=== PATIENT | female | born 1995 | race Caucasian/White ===

== ENCOUNTER 2020-11-28 23:28 | Emergency (ER) | payer OTHER ==
[2020-11-28 23:38] VITALS: BP 110/65; PULSE 83; TEMP 98.9; BMI 22.8
[2020-11-28] MEDS ORDERED: ACETAMINOPHEN 1000 MG/100 ML VIAL IVPB ONE (23:52)
[2020-11-28] MEDS ORDERED: FAMOTIDINE 20 MG/50 ML IVPB 20 MG/50 ML MG IVPB ONE (23:52)
[2020-11-28] MEDS ORDERED: MAG HYDROX/AL HYDROX/SIMETH 30 ML UNIT-DOSE CUP PO ONE (23:53)
[2020-11-28] MEDS ORDERED: ACETAMINOPHEN INJECTION 100 ML IVPB ONE (23:56)
[2020-11-28] MEDS ORDERED: MAG HYDROX/AL HYDROX/SIMETH 30 ML UNIT-DOSE CUP ONE (23:56)
[2020-11-29 01:34] LABS: BASO % 0.3 % (0-2.0); HEMATOCRIT 37.7 % (32.4-45.2); HEMOGLOBIN 12.8 GM/dL (10.7-15.3); MCH 29.3 pg (25.7-33.7); MCHC 34.1 g/dl (32.0-36.0); MEAN PLT VOLUME 10.8 fl (7.5-11.1); MONO % 7.8 % (3.8-10.2); NEUT % 52.9 % (42.8-82.8); PLATELET COUNT 185 10^3/uL (134-434); RBC 4.39 M/mm3 (3.60-5.2); RDW 13.2 % (11.6-15.6); WHITE BLOOD COUNT 11.7 K/mm3 (4.0-10.0)
[2020-11-29 01:37] LABS: EPI CELLS 22 /uL (0-25.1); HYALINE CASTS 0 /uL (0-3.1); URINE APPEARANCE CLEAR; URINE BACTERIA 427 /uL (0-1359); URINE BILIRUBIN NEGATIVE (NEGATIVE); URINE COLOR YELLOW; URINE GLUCOSE (UA) NEGATIVE (NEGATIVE); URINE KETONE NEGATIVE (NEGATIVE); URINE LEUK ESTERASE 1+ (NEGATIVE); URINE NITRITE NEGATIVE (NEGATIVE); URINE PROTEIN NEGATIVE (NEGATIVE); URINE RBC 2 /uL (0-23.9); URINE UROBILINOGEN 0.2 mg/dL (0.2-1.0); URINE WBC 35 /uL (0-25.8)
[2020-11-29 01:48] LABS: CHLORIDE 106 mmol/L (98-107); SODIUM 138 mmol/L (136-145)
[2020-11-29 01:51] LABS: BLOOD UREA NITROGEN 9.4 mg/dL (7-18); LIPASE 235 U/L (73-393); MAGNESIUM 2.1 mg/dL (1.8-2.4)
[2020-11-29 01:52] LABS: ANION GAP 7 MMOL/L (8-16); CO2 24 mmol/L (21-32)
[2020-11-29 01:54] LABS: CREATININE 0.6 mg/dL (0.55-1.3); GLUCOSE,RANDOM 81 mg/dL (74-106); SGOT/AST 13 U/L (15-37)
[2020-11-29 01:55] LABS: BILIRUBIN,TOTAL 0.2 mg/dL (0.2-1); TOT PROT 8.2 g/dl (6.4-8.2)
[2020-11-29 01:56] LABS: ALK PHOS 85 U/L (45-117)
[2020-11-29 01:59] LABS: SGPT/ALT 27 U/L (13-61)
== END 2020-11-29 02:18 | disposition home or self-care (01) ==
LOC: FER 23:28
PROC: 3E033NZ Introduction of Analgesics, Hypnotics, Sedatives into Peripheral Vein, Percutaneous Approach (ICD-10-PCS; principal; 2020-11-28)
PROC: 3E033GC Introduction of Other Therapeutic Substance into Peripheral Vein, Percutaneous Approach (ICD-10-PCS; 2020-11-28)
DX: R07.9 Chest pain, unspecified (principal); R10.13 Epigastric pain; Z32.01 Encounter for pregnancy test, result positive
CPT/HCPCS: 36415; 80053; 81003; 81025; 83690; 83735; 84484; 85025; 87086; 93005; 99284-25; J0131

== ENCOUNTER 2022-04-03 22:18 | Emergency (ER) | payer OTHER ==
[2022-04-03 22:27] VITALS: BP 113/75; PULSE 64; RESP 16; TEMP 98; BMI 23.2
[2022-04-03] MEDS ORDERED: MAG HYDROX/AL HYDROX/SIMETH 30 ML UNIT-DOSE CUP PO ONE (22:37)
[2022-04-03] MEDS ORDERED: ONDANSETRON 4 MG TABLET PO ONE (22:37)
[2022-04-03] MEDS ORDERED: ONDANSETRON *ODT* 4 MG TABLET ONE (22:40)
[2022-04-03] MEDS ORDERED: MAG HYDROX/AL HYDROX/SIMETH 30 ML UNIT-DOSE CUP ONE (22:40)
== END 2022-04-03 22:55 | disposition home or self-care (01) ==
LOC: FER 22:18
DX: J02.9 Acute pharyngitis, unspecified (principal)
CPT/HCPCS: 87651; 99283-25

== ENCOUNTER 2023-11-11 21:56 | Emergency (ER) | payer OTHER ==
[2023-11-11 22:09] VITALS: RESP 18; BMI 21.4
[2023-11-11] MEDS ORDERED: KETAMINE HCL 200 MG/20 ML VIAL ONE (23:01)
[2023-11-11] MEDS: KETAMINE HCL 200 MG/20 ML VIAL IVPUSH ONE (23:16)
[2023-11-12] MEDS ORDERED: KETOROLAC TROMETHAMINE 15 MG/ML VIAL ONE (00:34)
[2023-11-12] MEDS: KETOROLAC TROMETHAMINE 15 MG/ML VIAL IVPUSH ONE (00:37)
[2023-11-12] MEDS ORDERED: ACETAMINOPHEN INJECTION 100 ML ONE (02:05)
[2023-11-12 02:13] VITALS: BP 128/74; PULSE 80; TEMP 98.6
[2023-11-12] MEDS: ACETAMINOPHEN 1000 MG/100 ML BAG IVPB ONE (02:13)
== END 2023-11-12 04:24 | disposition home or self-care (01) ==
LOC: JER 21:56
PROC: 3E033GC Introduction of Other Therapeutic Substance into Peripheral Vein, Percutaneous Approach (ICD-10-PCS; 2023-11-11)
PROC: 3E033NZ Introduction of Analgesics, Hypnotics, Sedatives into Peripheral Vein, Percutaneous Approach (ICD-10-PCS; principal; 2023-11-12)
PROC: 3E0333Z Introduction of Anti-inflammatory into Peripheral Vein, Percutaneous Approach (ICD-10-PCS; 2023-11-12)
PROC: 3E033GC Introduction of Other Therapeutic Substance into Peripheral Vein, Percutaneous Approach (ICD-10-PCS; 2023-11-12)
DX: G90.511 Complex regional pain syndrome I of right upper limb (principal)
CPT/HCPCS: 99284-25; J0131

== ENCOUNTER 2023-12-12 00:22 | Inpatient (IN) | payer OTHER ==
[2023-12-12 01:49] LABS: BASO % 0.3 % (0-2.0); EOS % 0.1 % (0-4.5); HEMATOCRIT 42.2 % (32.4-45.2); LYMPH % 15.7 % (8-40); MCH 29.6 pg (25.7-33.7); MCHC 33.1 g/dl (32.0-36.0); MEAN CELL VOLUME 89.6 fl (80-96); MONO % 5.3 % (3.8-10.2); NEUT % 78.6 % (42.8-82.8); PLATELET COUNT 213 10^3/uL (134-434); RBC 4.71 M/mm3 (3.60-5.2); WHITE BLOOD COUNT 16.4 K/mm3 (4.0-10.0)
[2023-12-12 02:00] LABS: INR 1.05 (0.83-1.09); PROTHROMBIN TIME (PATIENT) 11.8 SEC (9.7-13.0)
[2023-12-12 02:06] LABS: ACTIVATED PTT 34.9 SECONDS (25.2-36.5)
[2023-12-12 02:27] LABS: POTASSIUM 3.9 mmol/L (3.5-5.1)
[2023-12-12 02:29] LABS: CALCIUM 8.8 mg/dL (8.5-10.1)
[2023-12-12 02:31] LABS: ALBUMIN 3.8 g/dl (3.4-5.0); BLOOD UREA NITROGEN 11.8 mg/dL (7-18)
[2023-12-12 02:33] LABS: CREATININE 0.5 mg/dL (0.55-1.3)
[2023-12-12 02:34] LABS: BILIRUBIN,TOTAL 0.2 mg/dL (0.2-1); TOT PROT 7.6 g/dl (6.4-8.2)
[2023-12-12 04:16] LABS: EPI CELLS 22 /uL (0-25.1); HYALINE CASTS 0 /uL (0-3.1); PH,URINE 6.5 (5.0-8.0); URINE APPEARANCE CLEAR; URINE BACTERIA 320 /uL (0-1359); URINE BILIRUBIN NEGATIVE (NEGATIVE); URINE COLOR YELLOW; URINE GLUCOSE (UA) NEGATIVE (NEGATIVE); URINE KETONE NEGATIVE (NEGATIVE); URINE LEUK ESTERASE TRACE (NEGATIVE); URINE NITRITE NEGATIVE (NEGATIVE); URINE PROTEIN NEGATIVE (NEGATIVE); URINE RBC 29 /uL (0-23.9); URINE UROBILINOGEN 0.2 mg/dL (0.2-1.0); URINE WBC 39 /uL (0-25.8)
[2023-12-12] MEDS: predniSONE 10 MG TABLET (UD) PO SCH (09:06)
[2023-12-12 10:01] LABS: BASO % 0.2 % (0-2.0); EOS % 0.3 % (0-4.5); HEMATOCRIT 37.9 % (32.4-45.2); HEMOGLOBIN 12.7 GM/dL (10.7-15.3); LYMPH % 29.6 % (8-40); MCH 29.6 pg (25.7-33.7); MCHC 33.5 g/dl (32.0-36.0); MEAN CELL VOLUME 88.2 fl (80-96); MEAN PLT VOLUME 10.5 fl (7.5-11.1); MONO % 6.3 % (3.8-10.2); NEUT % 63.6 % (42.8-82.8); PLATELET COUNT 193 10^3/uL (134-434); RBC 4.29 M/mm3 (3.60-5.2); RDW 13.6 % (11.6-15.6); WHITE BLOOD COUNT 16.3 K/mm3 (4.0-10.0)
[2023-12-12 10:02] LABS: CHLORIDE 108 mmol/L (98-107); POTASSIUM 3.6 mmol/L (3.5-5.1); SODIUM 139 mmol/L (136-145)
[2023-12-12 10:04] LABS: ANION GAP 5 mmol/L (4-13); BLOOD UREA NITROGEN 9.5 mg/dL (7-18); CALCIUM 8.7 mg/dL (8.5-10.1); CO2 25 mmol/L (21-32); GLUCOSE,RANDOM 72 mg/dL (74-106)
[2023-12-12 10:07] LABS: CREATININE 0.5 mg/dL (0.55-1.3)
[2023-12-12] MEDS: CEFTRIAXONE 1 G/50 ML PREMIX 50 ML IVPB SCH (11:53)
[2023-12-12 16:45] LABS: PH,URINE 7.5 (5.0-8.0); URINE APPEARANCE CLEAR; URINE BILIRUBIN NEGATIVE (NEGATIVE); URINE COLOR YELLOW; URINE GLUCOSE (UA) NEGATIVE (NEGATIVE); URINE KETONE NEGATIVE (NEGATIVE); URINE LEUK ESTERASE NEGATIVE (NEGATIVE); URINE NITRITE NEGATIVE (NEGATIVE); URINE PROTEIN NEGATIVE (NEGATIVE); URINE UROBILINOGEN 0.2 mg/dL (0.2-1.0)
[2023-12-12] MEDS ORDERED: ACETAMINOPHEN 1000 MG/100 ML BAG IVPB PRN (21:08)
[2023-12-13 10:56] LABS: BASO % 0.3 % (0-2.0); EOS % 0.6 % (0-4.5); HEMOGLOBIN 13.4 GM/dL (10.7-15.3); LYMPH % 32.4 % (8-40); MCH 30.1 pg (25.7-33.7); MCHC 34.4 g/dl (32.0-36.0); MEAN CELL VOLUME 87.4 fl (80-96); MEAN PLT VOLUME 10.3 fl (7.5-11.1); MONO % 6.1 % (3.8-10.2); NEUT % 60.6 % (42.8-82.8); PLATELET COUNT 194 10^3/uL (134-434); RBC 4.47 M/mm3 (3.60-5.2); RDW 13.7 % (11.6-15.6); WHITE BLOOD COUNT 12.1 K/mm3 (4.0-10.0)
[2023-12-13 14:04] LABS: ALBUMIN 3.3 g/dl (3.4-5.0); BILIRUBIN,TOTAL 0.4 mg/dL (0.2-1); CALCIUM 9.2 mg/dL (8.5-10.1); CREATININE 0.6 mg/dL (0.55-1.3); POTASSIUM 3.1 mmol/L (3.5-5.1)
[2023-12-13] MEDS: POTASSIUM CHLORIDE ORAL LIQUID 20 MEQ/15 ML PO ONE (15:39)
[2023-12-14] MEDS ORDERED: ONDANSETRON 4 MG/2 ML VIAL ONE (07:33)
[2023-12-14] MEDS ORDERED: LIDOCAINE HCL/PF 2% SDV 5ML VIAL ONE (07:33)
[2023-12-14] MEDS ORDERED: PROPOFOL 100 ML ONE (07:33)
[2023-12-14] MEDS ORDERED: PHENYLEPHRINE HCL 10 MG/1 ML SINGLE DOSE VIAL ONE (07:33)
[2023-12-14] MEDS ORDERED: DEXAMETHASONE SOD PHOSPHATE 4 MG/1 ML VIAL ONE (07:33)
[2023-12-14] MEDS ORDERED: SUCCINYLCHOLINE CHLORIDE 200 MG/10 ML SYRINGE ONE (07:34)
[2023-12-14] MEDS ORDERED: MIDAZOLAM HCL 2 MG/2 ML SINGLE DOSE VIAL ONE (07:34)
[2023-12-14] MEDS ORDERED: ROCURONIUM BROMIDE 50 MG/5 ML SYRINGE ONE ×3 (07:34→13:14)
[2023-12-14] MEDS ORDERED: ONDANSETRON 4 MG/2 ML VIAL IVPUSH PRN ×2 (07:57→18:21)
[2023-12-14] MEDS ORDERED: oxyCODONE HCL 5 MG TABLET PO PRN ×2 (07:57→18:30)
[2023-12-14] MEDS: ceFAZolin SODIUM 1 GM VIAL IVPB ONE (08:30)
[2023-12-14] MEDS ORDERED: HEPARIN NA (PORCINE) 5,000 UNITS/ML 1ML VIAL ONE (13:57)
[2023-12-14] MEDS ORDERED: HYDROmorphone HCl 2 MG/ML VIAL ONE (16:26)
[2023-12-14] MEDS ORDERED: PROMETHAZINE HCL 25 MG/1 ML VIAL IVPB PRN (18:21)
[2023-12-14] MEDS: LORazepam 2 MG/ML SDV VIAL IVPUSH SCH (18:30)
[2023-12-14] MEDS: HEPARIN INFUSION - 25,000 UNITS/500 ML INFUS.BAG IVPB SCH (18:50)
[2023-12-14] MEDS: HYDROmorphone *PCA* 10MG/50ML DISP.SYRIN PCA SCH (18:50)
[2023-12-14] MEDS: LACTATED RINGERS SOLUTION 1,000 ML IV SCH (18:50)
[2023-12-14] MEDS ORDERED: HEPARIN NA (PORCINE) 5,000 UNITS/ML 1ML VIAL IVPUSH PRN ×2 (19:22)
[2023-12-14] MEDS: ACETAMINOPHEN 1000 MG/100 ML BAG IVPB ONE (19:32)
[2023-12-14] MEDS: HYDROmorphone HCl 2 MG/ML VIAL IVPUSH PRN (19:40)
[2023-12-15 01:33] LABS: HEMATOCRIT 32.4 % (32.4-45.2); HEMOGLOBIN 10.7 GM/dL (10.7-15.3); MCH 29.4 pg (25.7-33.7); MCHC 33.1 g/dl (32.0-36.0); MEAN CELL VOLUME 88.8 fl (80-96); PLATELET COUNT 174 10^3/uL (134-434); RBC 3.65 M/mm3 (3.60-5.2); RDW 13.4 % (11.6-15.6); WHITE BLOOD COUNT 28.9 K/mm3 (4.0-10.0)
[2023-12-15 01:38] LABS: INR 1.08 (0.83-1.09); PROTHROMBIN TIME (PATIENT) 12.4 SEC (9.7-13.0)
[2023-12-15 01:56] LABS: ACTIVATED PTT 125.4 SECONDS (25.2-36.5)
[2023-12-15 02:02] LABS: POTASSIUM 4.2 mmol/L (3.5-5.1)
[2023-12-15 02:04] LABS: CALCIUM 8.3 mg/dL (8.5-10.1)
[2023-12-15 02:05] LABS: ALBUMIN 2.9 g/dl (3.4-5.0); BLOOD UREA NITROGEN 6.5 mg/dL (7-18); MAGNESIUM 1.8 mg/dL (1.8-2.4)
[2023-12-15 02:08] LABS: CREATININE 0.7 mg/dL (0.55-1.3); PHOSPHOROUS 4.3 mg/dL (2.5-4.9)
[2023-12-15 02:09] LABS: BILIRUBIN,TOTAL 0.4 mg/dL (0.2-1)
[2023-12-15 02:10] LABS: TOT PROT 5.9 g/dl (6.4-8.2)
[2023-12-15 05:43] LABS: ANISOCYTOSIS 3+; MACROCYTOSIS 1+; ROULEAU 2+
[2023-12-15 06:37] LABS: HEMATOCRIT 32.1 % (32.4-45.2); HEMOGLOBIN 10.8 GM/dL (10.7-15.3); MCHC 33.6 g/dl (32.0-36.0); MEAN CELL VOLUME 89.5 fl (80-96); MEAN PLT VOLUME 10.3 fl (7.5-11.1); PLATELET COUNT 171 10^3/uL (134-434); RBC 3.58 M/mm3 (3.60-5.2); RDW 13.3 % (11.6-15.6); WHITE BLOOD COUNT 22.7 K/mm3 (4.0-10.0)
[2023-12-15 10:06] LABS: ANISOCYTOSIS 0; HELMET CELLS 0; HOWELL-JOLLY BODIES 0; MACROCYTOSIS 0; OVALOCYTE 0; ROULEAU 0; SICKELED CELLS 0; TARGET CELLS 0; TEAR DROP CELLS 0; TOXIC GRANULATION 0
[2023-12-15] MEDS: MUPIROCIN 2% TOPICAL OINTMENT FOR DECOLONIZATION NS SCH ×2 (10:58→21:38)
[2023-12-15] MEDS: predniSONE 10 MG TABLET (UD) PO SCH (10:58)
[2023-12-15] MEDS ORDERED: HEPARIN NA (PORCINE) 5,000 UNITS/ML 1ML VIAL ONE ×2 (13:20→16:27)
[2023-12-15] MEDS ORDERED: PAPAVERINE HCL 30 MG/1 ML 10 ML VIAL NR ONE (13:20)
[2023-12-15] MEDS ORDERED: MIDAZOLAM HCL 2 MG/2 ML SINGLE DOSE VIAL ONE (13:37)
[2023-12-15] MEDS ORDERED: ROCURONIUM BROMIDE 50 MG/5 ML SYRINGE ONE (13:37)
[2023-12-15] MEDS ORDERED: ceFAZolin SODIUM 1 GM VIAL ONE (14:56)
[2023-12-15] MEDS: ceFAZolin SODIUM 1 GM VIAL IVPB ONE (14:57)
[2023-12-15] MEDS: HEPARIN NA (PORCINE) 5,000 UNITS/ML 1ML VIAL SQ ONE (15:01)
[2023-12-15] MEDS ORDERED: POVIDONE-IODINE OINTMENT 10% - 28.4 GM TUBE ONE ×2 (17:55→17:56)
[2023-12-15] MEDS: POVIDONE-IODINE OINTMENT 10% - 28.4 GM TUBE TP ONE (18:55)
[2023-12-15] MEDS ORDERED: HEPARIN NA (PORCINE) 5,000 UNITS/ML 1ML VIAL IVPUSH PRN ×2 (19:02)
[2023-12-15] MEDS: HYDROmorphone *PCA* 10MG/50ML DISP.SYRIN PCA SCH (19:55)
[2023-12-15] MEDS: CHLORHEXIDINE GLUCONATE 4% CLEANSER FOR DECOLONIZATION TP SCH (21:37)
[2023-12-15] MEDS ORDERED: CHLORHEXIDINE GLUCONATE 4% CLEANSER FOR DECOLONIZATION TP SCH ×2 (22:00)
[2023-12-15] MEDS ORDERED: MUPIROCIN 2% TOPICAL OINTMENT FOR DECOLONIZATION NS SCH (22:00)
[2023-12-15] MEDS: HEPARIN INFUSION - 25,000 UNITS/500 ML INFUS.BAG IVPB SCH (22:09)
[2023-12-16 05:17] LABS: INR 1.09 (0.83-1.09); PROTHROMBIN TIME (PATIENT) 12.3 SEC (9.7-13.0)
[2023-12-16 05:20] LABS: ACTIVATED PTT 54.4 SECONDS (25.2-36.5)
[2023-12-16 06:48] LABS: HEMATOCRIT 22.9 % (32.4-45.2); HEMOGLOBIN 7.6 GM/dL (10.7-15.3); MCH 29.5 pg (25.7-33.7); MCHC 33.1 g/dl (32.0-36.0); MEAN PLT VOLUME 9.9 fl (7.5-11.1); PLATELET COUNT 155 10^3/uL (134-434); RBC 2.58 M/mm3 (3.60-5.2); RDW 13.4 % (11.6-15.6); WHITE BLOOD COUNT 16.2 K/mm3 (4.0-10.0)
[2023-12-16 07:04] LABS: POTASSIUM 3.8 mmol/L (3.5-5.1)
[2023-12-16 07:06] LABS: CALCIUM 7.5 mg/dL (8.5-10.1)
[2023-12-16 07:10] LABS: CREATININE 0.4 mg/dL (0.55-1.3)
[2023-12-16 07:12] LABS: BILIRUBIN,TOTAL 0.5 mg/dL (0.2-1); TOT PROT 4.8 g/dl (6.4-8.2)
[2023-12-16 07:52] LABS: ALBUMIN 2.3 g/dl (3.4-5.0)
[2023-12-16] MEDS: predniSONE 10 MG TABLET (UD) PO SCH (09:21)
[2023-12-16 10:35] LABS: HEMATOCRIT 21.5 % (32.4-45.2); HEMOGLOBIN 7.2 GM/dL (10.7-15.3); LYMPH % 8.3 % (8-40); MCH 29.8 pg (25.7-33.7); MCHC 33.7 g/dl (32.0-36.0); MEAN CELL VOLUME 88.5 fl (80-96); MEAN PLT VOLUME 9.3 fl (7.5-11.1); NEUT % 81.7 % (42.8-82.8); PLATELET COUNT 150 10^3/uL (134-434); RBC 2.42 M/mm3 (3.60-5.2); RDW 13.3 % (11.6-15.6); WHITE BLOOD COUNT 14.6 K/mm3 (4.0-10.0)
[2023-12-16] MEDS: ACETAMINOPHEN 1000 MG/100 ML BAG IVPB PRN ×2 (12:20→17:55)
[2023-12-16] MEDS: LACTATED RINGERS SOLUTION 1,000 ML/1,000 ML INFUS.BAG IV SCH (14:25)
[2023-12-16] MEDS ORDERED: SENNOSIDES 8.8 MG/5 ML SYRUP PO PRN (16:48)
[2023-12-16] MEDS ORDERED: HYDROmorphone HCl 2 MG/ML VIAL IVPUSH PRN (16:51)
[2023-12-16] MEDS ORDERED: ACETAMINOPHEN 325 MG TABLET (FP) PO SCH (17:00)
[2023-12-16 19:32] LABS: HEMATOCRIT 25.1 % (32.4-45.2); HEMOGLOBIN 8.4 GM/dL (10.7-15.3); MCH 29.9 pg (25.7-33.7); MCHC 33.6 g/dl (32.0-36.0); MEAN PLT VOLUME 9.4 fl (7.5-11.1); PLATELET COUNT 128 10^3/uL (134-434); RBC 2.82 M/mm3 (3.60-5.2); RDW 13.9 % (11.6-15.6); WHITE BLOOD COUNT 13.9 K/mm3 (4.0-10.0)
[2023-12-16] MEDS: LACTATED RINGERS SOLUTION 1,000 ML IV SCH (19:40)
[2023-12-17] MEDS: LACTATED RINGERS SOLUTION 1,000 ML/1,000 ML INFUS.BAG IV ONE (03:08)
[2023-12-17 07:24] LABS: HEMATOCRIT 20.2 % (32.4-45.2); MCH 30.4 pg (25.7-33.7); MCHC 33.9 g/dl (32.0-36.0); MEAN CELL VOLUME 89.6 fl (80-96); MEAN PLT VOLUME 9.3 fl (7.5-11.1); PLATELET COUNT 122 10^3/uL (134-434); RBC 2.25 M/mm3 (3.60-5.2); RDW 13.5 % (11.6-15.6); WHITE BLOOD COUNT 13.8 K/mm3 (4.0-10.0)
[2023-12-17 07:39] LABS: POTASSIUM 3.3 mmol/L (3.5-5.1)
[2023-12-17 07:41] LABS: CALCIUM 7.3 mg/dL (8.5-10.1)
[2023-12-17 07:42] LABS: MAGNESIUM 1.9 mg/dL (1.8-2.4)
[2023-12-17 07:45] LABS: ALBUMIN 1.8 g/dl (3.4-5.0); CREATININE 0.2 mg/dL (0.55-1.3)
[2023-12-17 07:47] LABS: BILIRUBIN,TOTAL 0.5 mg/dL (0.2-1)
[2023-12-17 07:55] LABS: HEMOGLOBIN 6.8 GM/dL (10.7-15.3)
[2023-12-17 08:47] LABS: HEMATOCRIT 21.6 % (32.4-45.2); HEMOGLOBIN 7.2 GM/dL (10.7-15.3); MCH 30.3 pg (25.7-33.7); MCHC 33.5 g/dl (32.0-36.0); MEAN CELL VOLUME 90.6 fl (80-96); MEAN PLT VOLUME 9.4 fl (7.5-11.1); PLATELET COUNT 123 10^3/uL (134-434); RBC 2.38 M/mm3 (3.60-5.2); RDW 13.7 % (11.6-15.6)
[2023-12-17] MEDS: ACETAMINOPHEN 1000 MG/100 ML BAG IVPB SCH (09:10)
[2023-12-17] MEDS: POLYETHYLENE GLYCOL (HEALTHYLAX) 3350 17 GM PACKET PO SCH (09:19)
[2023-12-17] MEDS ORDERED: PAPAVERINE HCL 30 MG/1 ML 10 ML VIAL NR ONE (10:26)
[2023-12-17] MEDS ORDERED: LIDOCAINE HCL 1%, 10 MG/ML (20ML VIAL) ONE (10:26)
[2023-12-17] MEDS ORDERED: NITROGLYCERIN 50 MG/10 ML VIAL IVPB ONE (10:26)
[2023-12-17] MEDS ORDERED: HEPARIN NA (PORCINE) 5,000 UNITS/ML 1ML VIAL ONE (10:26)
[2023-12-17] MEDS: ceFAZolin SODIUM 1 GM VIAL IVPB ONE (11:53)
[2023-12-17] MEDS: HEPARIN NA (PORCINE) 5,000 UNITS/ML 1ML VIAL SQ ONE (12:17)
[2023-12-17] MEDS ORDERED: ONDANSETRON 4 MG/2 ML VIAL IVPUSH PRN (14:57)
[2023-12-17] MEDS: HEPARIN INFUSION - 25,000 UNITS/500 ML INFUS.BAG IVPB SCH (15:34)
[2023-12-17] MEDS: KCL 10 MEQ IVPB 10 MEQ/100 ML INFUS.BAG IVPB SCH (17:18)
[2023-12-17] MEDS: POTASSIUM CHLORIDE ORAL LIQUID 20 MEQ/15 ML PO SCH (17:33)
[2023-12-17] MEDS ORDERED: ACETAMINOPHEN 325 MG TABLET (FP) PO SCH (21:00)
[2023-12-17 21:15] LABS: HEMOGLOBIN 11.4 GM/dL (10.7-15.3); MCH 30.5 pg (25.7-33.7); MCHC 34.5 g/dl (32.0-36.0); MEAN CELL VOLUME 88.3 fl (80-96); PLATELET COUNT 120 10^3/uL (134-434); RBC 3.74 M/mm3 (3.60-5.2); RDW 13.8 % (11.6-15.6); WHITE BLOOD COUNT 22.9 K/mm3 (4.0-10.0)
[2023-12-17] MEDS: CHLORHEXIDINE GLUCONATE 4% CLEANSER FOR DECOLONIZATION TP SCH (21:29)
[2023-12-17] MEDS: MUPIROCIN 2% TOPICAL OINTMENT FOR DECOLONIZATION NS SCH (21:29)
[2023-12-17 22:10] LABS: BLOOD UREA NITROGEN 3.5 mg/dL (7-18); CALCIUM 7.5 mg/dL (8.5-10.1); POTASSIUM 3.6 mmol/L (3.5-5.1)
[2023-12-17 22:21] LABS: CREATININE 0.2 mg/dL (0.55-1.3)
[2023-12-17 23:36] LABS: ANISOCYTOSIS 0; HELMET CELLS 0; HOWELL-JOLLY BODIES 0; MACROCYTOSIS 0; OVALOCYTE 0; ROULEAU 0; SICKELED CELLS 0; TARGET CELLS 0; TEAR DROP CELLS 0; TOXIC GRANULATION 0
[2023-12-18] MEDS ORDERED: HYDROmorphone HCl 2 MG/ML VIAL IVPUSH PRN (02:28)
[2023-12-18] MEDS ORDERED: SENNOSIDES 8.8 MG/5 ML SYRUP PO PRN (02:28)
[2023-12-18] MEDS: HYDROmorphone *PCA* 10MG/50ML DISP.SYRIN PCA SCH (04:19)
[2023-12-18 08:30] LABS: HEMATOCRIT 31.7 % (32.4-45.2); HEMOGLOBIN 10.8 GM/dL (10.7-15.3); MCH 30.5 pg (25.7-33.7); MCHC 34.1 g/dl (32.0-36.0); MEAN CELL VOLUME 89.4 fl (80-96); MEAN PLT VOLUME 10.1 fl (7.5-11.1); PLATELET COUNT 149 10^3/uL (134-434); RBC 3.55 M/mm3 (3.60-5.2); RDW 13.7 % (11.6-15.6); WHITE BLOOD COUNT 23.6 K/mm3 (4.0-10.0)
[2023-12-18 08:41] LABS: CHLORIDE 106 mmol/L (98-107); POTASSIUM 3.8 mmol/L (3.5-5.1); SODIUM 140 mmol/L (136-145)
[2023-12-18 08:43] LABS: ANION GAP 5 mmol/L (4-13); BLOOD UREA NITROGEN 2.3 mg/dL (7-18); CO2 29 mmol/L (21-32); GLUCOSE,RANDOM 91 mg/dL (74-106)
[2023-12-18] MEDS: ACETAMINOPHEN 1000 MG/100 ML BAG IVPB PRN (08:45)
[2023-12-18 08:47] LABS: CREATININE < 0.2 mg/dL (0.55-1.3); PHOSPHOROUS 2.4 mg/dL (2.5-4.9)
[2023-12-18 08:56] LABS: CALCIUM 7.7 mg/dL (8.5-10.1)
[2023-12-18] MEDS: POLYETHYLENE GLYCOL (HEALTHYLAX) 3350 17 GM PACKET PO SCH (09:10)
[2023-12-18 10:12] LABS: ANISOCYTOSIS 0; MACROCYTOSIS 0
[2023-12-18] MEDS: GABAPENTIN 100 MG CAPSULE PO ONE (12:26)
[2023-12-18] MEDS: SODIUM CHLORIDE 500 ML IV STA (16:29)
[2023-12-18 16:55] LABS: HEMATOCRIT 15.8 % (32.4-45.2); MCH 30.3 pg (25.7-33.7); MCHC 33.6 g/dl (32.0-36.0); MEAN CELL VOLUME 90.1 fl (80-96); MEAN PLT VOLUME 8.2 fl (7.5-11.1); PLATELET COUNT 90 10^3/uL (134-434); RBC 1.75 M/mm3 (3.60-5.2); RDW 14.1 % (11.6-15.6); WHITE BLOOD COUNT 11.8 K/mm3 (4.0-10.0)
[2023-12-18 17:07] LABS: HEMOGLOBIN 5.3 GM/dL (10.7-15.3)
[2023-12-18 17:34] LABS: HEMATOCRIT 29.7 % (32.4-45.2); HEMOGLOBIN 10.2 GM/dL (10.7-15.3); MCH 30.4 pg (25.7-33.7); MCHC 34.3 g/dl (32.0-36.0); MEAN CELL VOLUME 88.8 fl (80-96); MEAN PLT VOLUME 8.3 fl (7.5-11.1); PLATELET COUNT 164 10^3/uL (134-434); RBC 3.34 M/mm3 (3.60-5.2); RDW 13.9 % (11.6-15.6)
[2023-12-18 19:07] LABS: ANISOCYTOSIS 0; MACROCYTOSIS 0
[2023-12-18 19:16] LABS: ANISOCYTOSIS 0; MACROCYTOSIS 0
[2023-12-19] MEDS: HEPARIN NA (PORCINE) 5,000 UNITS/ML 1ML VIAL IVPUSH PRN (01:30)
[2023-12-19 08:11] LABS: HEMATOCRIT 28.9 % (32.4-45.2); HEMOGLOBIN 9.8 GM/dL (10.7-15.3); MCH 30.5 pg (25.7-33.7); MCHC 33.9 g/dl (32.0-36.0); MEAN PLT VOLUME 9.1 fl (7.5-11.1); PLATELET COUNT 194 10^3/uL (134-434); RBC 3.21 M/mm3 (3.60-5.2); RDW 13.7 % (11.6-15.6)
[2023-12-19 08:26] LABS: WHITE BLOOD COUNT 34.3 K/mm3 (4.0-10.0)
[2023-12-19] MEDS: ACETAMINOPHEN 1000 MG/100 ML BAG IVPB PRN (08:55)
[2023-12-19] MEDS: PIPERACILLIN/TAZOB 3.375 GM 3.375 GM in DEXTROSE 5%-WATER - 50 ML IVPB SCH (13:56)
[2023-12-19] MEDS: PIPERACILLIN/TAZOB 3.375 GM 50 ML IVPB SCH (14:09)
[2023-12-19] MEDS: VANCOMYCIN/WATER FOR INJ (PEG) 750 MG/150 ML BAG IVPB SCH (15:01)
[2023-12-19] MEDS: oxyCODONE HCL 5 MG TABLET PO PRN ×2 (16:25→20:02)
[2023-12-19] MEDS ORDERED: PIPERACILLIN/TAZOB 3.375 GM 3.375 GM in DEXTROSE 5%-WATER - 50 ML IVPB SCH (18:00)
[2023-12-20 08:17] LABS: INR 1.07 (0.83-1.09); PROTHROMBIN TIME (PATIENT) 12.3 SEC (9.7-13.0)
[2023-12-20 08:20] LABS: ACTIVATED PTT 40.9 SECONDS (25.2-36.5)
[2023-12-20] MEDS: HEPARIN NA (PORCINE) 5,000 UNITS/ML 1ML VIAL IVPUSH ONE (08:23)
[2023-12-20 08:24] LABS: HEMOGLOBIN 8.5 GM/dL (10.7-15.3); MCH 31.2 pg (25.7-33.7); MCHC 34.1 g/dl (32.0-36.0); MEAN CELL VOLUME 91.5 fl (80-96); MEAN PLT VOLUME 9.2 fl (7.5-11.1); PLATELET COUNT 238 10^3/uL (134-434); RBC 2.74 M/mm3 (3.60-5.2); RDW 13.8 % (11.6-15.6)
[2023-12-20 08:39] LABS: POTASSIUM 3.4 mmol/L (3.5-5.1)
[2023-12-20 08:41] LABS: CALCIUM 7.6 mg/dL (8.5-10.1)
[2023-12-20 08:42] LABS: ALBUMIN 1.8 g/dl (3.4-5.0); BLOOD UREA NITROGEN 3.5 mg/dL (7-18); MAGNESIUM 1.9 mg/dL (1.8-2.4)
[2023-12-20 08:45] LABS: CREATININE 0.4 mg/dL (0.55-1.3); PHOSPHOROUS 2.4 mg/dL (2.5-4.9)
[2023-12-20 08:46] LABS: BILIRUBIN,TOTAL 0.7 mg/dL (0.2-1); TOT PROT 5.1 g/dl (6.4-8.2)
[2023-12-20] MEDS: LACTATED RINGERS SOLUTION 1,000 ML/1,000 ML INFUS.BAG IV SCH (09:07)
[2023-12-20 09:17] LABS: ANISOCYTOSIS 0; MACROCYTOSIS 0
[2023-12-20] MEDS: ACETAMINOPHEN 325 MG TABLET (FP) PO PRN (10:49)
[2023-12-20] MEDS ORDERED: HEPARIN INFUSION - 25,000 UNITS/500 ML INFUS.BAG IVPB SCH (11:14)
[2023-12-20] MEDS: LACTATED RINGERS SOLUTION 1,000 ML/1,000 ML INFUS.BAG IV STA (11:30)
[2023-12-20] MEDS: HEPARIN INFUSION - 25,000 UNITS/500 ML INFUS.BAG IVPB SCH (14:25)
[2023-12-20 14:32] VITALS: BMI 22.2
[2023-12-20] MEDS: POTASSIUM PHOSPHATE 30 MM in SODIUM CHLORIDE 250 ML IVPB ONE (14:52)
[2023-12-20] MEDS ORDERED: HEPARIN NA (PORCINE) 5,000 UNITS/ML 1ML VIAL ONE (14:52)
[2023-12-20] MEDS ORDERED: ALBUMIN HUMAN 5% 500 ML IV SOLUTION IV ONE (17:00)
[2023-12-20] MEDS ORDERED: NITROPRUSSIDE SODIUM 25 MG/1 ML ML IVPB ONE (17:18)
[2023-12-20] MEDS: FENTANYL CITRATE/PF 50 MCG/ML VIAL IVPUSH PRN (20:18)
[2023-12-20 21:31] LABS: HEMATOCRIT 37.2 % (32.4-45.2); HEMOGLOBIN 12.6 GM/dL (10.7-15.3); MCH 30.3 pg (25.7-33.7); MCHC 33.9 g/dl (32.0-36.0); MEAN CELL VOLUME 89.5 fl (80-96); MEAN PLT VOLUME 8.6 fl (7.5-11.1); PLATELET COUNT 221 10^3/uL (134-434); RBC 4.16 M/mm3 (3.60-5.2); WHITE BLOOD COUNT 24.7 K/mm3 (4.0-10.0)
[2023-12-20 22:21] LABS: POTASSIUM 3.7 mmol/L (3.5-5.1)
[2023-12-20 22:24] LABS: ALBUMIN 2.2 g/dl (3.4-5.0); BLOOD UREA NITROGEN 3.2 mg/dL (7-18); CALCIUM 8.3 mg/dL (8.5-10.1); MAGNESIUM 2.2 mg/dL (1.8-2.4)
[2023-12-20 22:27] LABS: CREATININE 0.4 mg/dL (0.55-1.3)
[2023-12-20 22:29] LABS: TOT PROT 5.8 g/dl (6.4-8.2)
[2023-12-20 23:31] LABS: ANISOCYTOSIS 0; HELMET CELLS 0; HOWELL-JOLLY BODIES 0; MACROCYTOSIS 0; OVALOCYTE 0; ROULEAU 0; SICKELED CELLS 0; TARGET CELLS 0; TEAR DROP CELLS 0; TOXIC GRANULATION 0
[2023-12-21 06:55] LABS: HEMATOCRIT 31.6 % (32.4-45.2); HEMOGLOBIN 10.8 GM/dL (10.7-15.3); MCH 30.2 pg (25.7-33.7); MCHC 34.1 g/dl (32.0-36.0); MEAN CELL VOLUME 88.7 fl (80-96); MEAN PLT VOLUME 8.3 fl (7.5-11.1); PLATELET COUNT 254 10^3/uL (134-434); RBC 3.56 M/mm3 (3.60-5.2); RDW 13.8 % (11.6-15.6); WHITE BLOOD COUNT 22.7 K/mm3 (4.0-10.0)
[2023-12-21 07:05] LABS: POTASSIUM 3.7 mmol/L (3.5-5.1)
[2023-12-21 07:11] LABS: CALCIUM 7.4 mg/dL (8.5-10.1)
[2023-12-21 07:14] LABS: CREATININE 0.3 mg/dL (0.55-1.3); PHOSPHOROUS 3.4 mg/dL (2.5-4.9)
[2023-12-21 07:16] LABS: TOT PROT 4.8 g/dl (6.4-8.2)
[2023-12-21 07:22] LABS: ALBUMIN 1.7 g/dl (3.4-5.0)
[2023-12-21 15:06] VITALS: TEMP 98.8
[2023-12-21 20:02] VITALS: BP 105/57; PULSE 99; RESP 24
[2023-12-21 20:45] LABS: HEMATOCRIT 31.8 % (32.4-45.2); MCH 30.5 pg (25.7-33.7); MCHC 34.5 g/dl (32.0-36.0); MEAN CELL VOLUME 88.2 fl (80-96); MEAN PLT VOLUME 7.9 fl (7.5-11.1); PLATELET COUNT 300 10^3/uL (134-434); WHITE BLOOD COUNT 20.9 K/mm3 (4.0-10.0)
[2023-12-21] MEDS: HEPARIN NA (PORCINE) 5,000 UNITS/ML 1ML VIAL IVPUSH PRN (21:05)
[2023-12-21 21:07] LABS: POTASSIUM 3.5 mmol/L (3.5-5.1)
[2023-12-21 21:08] LABS: CALCIUM 7.9 mg/dL (8.5-10.1)
[2023-12-21 21:09] LABS: BLOOD UREA NITROGEN 4.3 mg/dL (7-18)
[2023-12-21 21:12] LABS: CREATININE 0.3 mg/dL (0.55-1.3)
[2023-12-21] MEDS ORDERED: KCL 10 MEQ IVPB 10 MEQ/100 ML INFUS.BAG IVPB SCH (21:30)
== END 2023-12-21 22:30 | disposition short-term general hospital (02) | DRG 24 ==
LOC: JER 00:22 → JERBED 02:54 → J5S 04:30 → JICU 12-14 22:38
PROVIDERS: ADMIT Internal Medicine; ATTEND Internal Medicine Pulmonary Disease
PROC: 0PT10ZZ Resection of 1 to 2 Ribs, Open Approach (ICD-10-PCS; 2023-12-14)
PROC: 03773ZZ Dilation of Right Brachial Artery, Percutaneous Approach (ICD-10-PCS; principal; 2023-12-14 08:00)
PROC: 031 Upper Arteries, Bypass (ICD-10-PCS; 2023-12-15)
PROC: 30233N1 Transfusion of Nonautologous Red Blood Cells into Peripheral Vein, Percutaneous Approach (ICD-10-PCS; 2023-12-16)
PROC: 03C Upper Arteries, Extirpation (ICD-10-PCS; 2023-12-17)
PROC: 03C70ZZ Extirpation of Matter from Right Brachial Artery, Open Approach (ICD-10-PCS; 2023-12-17)
PROC: 06BP0ZZ Excision of Right Saphenous Vein, Open Approach (ICD-10-PCS; 2023-12-20)
PROC: 03C50ZZ Extirpation of Matter from Right Axillary Artery, Open Approach (ICD-10-PCS; 2023-12-20)
PROC: 3E05017 Introduction of Other Thrombolytic into Peripheral Artery, Open Approach (ICD-10-PCS; 2023-12-20)
DX: G54.0 Brachial plexus disorders (principal); J18.9 Pneumonia, unspecified organism; D62 Acute posthemorrhagic anemia; D72.829 Elevated white blood cell count, unspecified; I70.208 Unspecified atherosclerosis of native arteries of extremities, other extremity; I70.8 Atherosclerosis of other arteries; Q76.5 Cervical rib; J95.89 Other postprocedural complications and disorders of respiratory system, not elsewhere classified; Y83.9 Surgical procedure, unspecified as the cause of abnormal reaction of the patient, or of later complication, without mention of misadventure at the time of the procedure
CPT/HCPCS: 0241U-QW; 36415; 36430; 70498-TC; 71045-TC-FY; 71046-TC-FY; 71260-TC; 72050-TC-FY; 76000-TC-FY; 80048; 80053; 81003; 82962; 83735; 84100; 84703; 85025; 85027; 85520; 85610; 85651; 85730; 86140; 86850; 86900; 86901; 86922; 87040; 87070; 87086; 87205; 87481; 87635; 88304-TC; 88311-TC; 93005; 93010; 93971; 94760; 97116-GP; 97163-GP; 99285-25; C1768; G0480; J0131; J1644; P9058